=== PATIENT | female | born 1955 | race Caucasian/White ===

== ENCOUNTER 2021-02-12 19:30 | Emergency (ER) | payer OTHER ==
[~2021-02-12] VITALS: Ht 170.2 cm; Wt 75.0 kg
--- NOTE | 2021-02-12 19:36 | PHYS DOC ---
General Adult HPI: HPI: ".. I am sick.. got a sore throat.. nauseated.. some diarrhea.. just feel bad all over... my voice is gone..." Patient is a 65 year old female who presents with above hx and complaints n ausea, diarrhea, sore throat and malaise. No history of bad food intake. No history recent trauma. No specific ill contacts. Patient has had COVID vaccinations. X2 Moderna. No recent travel outside cancer area. Normally healthy. The pt. follows with Dr. Starr as primary. Review of Systems: Review of Systems: Constitutional: Subjective fever or chills Eyes: Denies change in visual acuity HENT: Planes of nasal congestion, laryngitis and sore throat Respiratory: History nonproductive cough Cardiovascular: Denies chest pain or edema GI: Mild abdomen abdominal pain, nausea, vomiting, and diarrhea : Denies dysuria Musculoskeletal: Denies back pain or joint pain Integument: Denies rash Neurologic: Denies headache, focal weakness or sensory changes Endocrine: Denies polyuria or polydipsia Lymphatic: Denies swollen glands Psychiatric: Denies depression or anxiety Family History: Family History: Noncontributory to presentation Current Medications: Current Meds: See nursing for home meds Allergies: Allergies: No known drug allergies Physical Exam: PE: Constitutional: Well developed, well nourished, no acute distress, non-toxic appearance. [] HENT: Normocephalic, atraumatic, bilateral external ears normal, TMs show small amount of fluid but no erythema oropharynx moist, no oral exudates, nose swollen turbinates clear rhinorrhea. Postnasal drainage. Mild pharyngeal erythema Eyes: PERRLA, EOMI, conjunctiva normal, no discharge. [] Neck: Normal range of motion, no tenderness, supple, no stridor. [] Cardiovascular:Heart rate regular rhythm, no murmur [] Lungs & Thorax: Bilateral breath sounds equal apex with few scattered wheezes auscultation [] Abdomen: Bowel sounds hyperactive, soft, or abdomen tenderness, no masses, no pulsatile masses. [] No focal areas of rebound. No psoas sign. Skin: Warm, dry, no erythema, no rash. [] Back: No tenderness, no CVA tenderness. [] Extremities: No tenderness, no cyanosis, no clubbing, ROM intact, no edema. No cording appreciated Neurologic: Alert and oriented X 3, normal motor function, normal sensory function, no focal deficits noted. [] Psychologic: Affect anxious , judgement normal, mood normal. [] EKG: EKG: [] Radiology/Procedures: Radiology/Procedures: [][address] [address] IMAGING REPORT Signed PATIENT: URSZULA COWAN ACCOUNT: [id number] : 1955 LOCATION: ER AGE: 65 SEX: F EXAM STATUS: REG ER ORD. PHYSICIAN: MILAGROS PRINCE MD REASON: abd. pain, diarrhea, v PROCEDURE: ACUTE ABDOMEN SERIES EXAMINATION: Chest and abdominal radiograph. VIEWS: Single AP view of the chest COMPARISON: None INDICATION:65 years, Female, abdominal pain. FINDINGS: CHEST: Normal cardiomediastinal silhouette. No focal consolidation. No pleural effusion or pneumothorax. No acute osseous process. Surgical clips within the area of the right thoracic inlet. Abdomen: Nonspecific nonobstructive bowel gas pattern. 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 Small amount of air within the rectum. No gross pneumoperitoneum.No abnormal intra-abdominal calcifications. No acute osseous process. Cholecystectomy clips noted. IMPRESSION: 1. No acute cardiopulmonary process. 2. Nonobstructive bowel gas pattern. Electronically signed by: Javier Spann DO (02/12/2021 9:33 PM) [facility] DICTATED AND SIGNED BY: JAVIER SPANN DO DATE: 02/12/212127 CC: MILAGROS PRINCE MD; OG STARR ~MTH0 [address] [place] [id number] IMAGING REPORT Signed PATIENT: URSZULA COWAN ACCOUNT: [id number] : 1955 LOCATION: ER AGE: 65 SEX: F EXAM STATUS: REG ER ORD. PHYSICIAN: MILAGROS PRINCE MD REASON: abd. pain, diarrhea, v PROCEDURE: ACUTE ABDOMEN SERIES EXAMINATION: Chest and abdominal radiograph. VIEWS: Single AP view of the chest COMPARISON: None INDICATION:65 years, Female, abdominal pain. FINDINGS: CHEST: Normal cardiomediastinal silhouette. No focal consolidation. No pleural effusion or pneumothorax. No acute osseous process. Surgical clips within the area of the right thoracic inlet. Abdomen: Nonspecific nonobstructive bowel gas pattern. 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 Small amount of air within the rectum. No gross pneumoperitoneum.No abnormal intra-abdominal calcifications. No acute osseous process. Cholecystectomy clips noted. IMPRESSION: 1. No acute cardiopulmonary process. 2. Nonobstructive bowel gas pattern. Electronically signed by: Javier Spann DO (02/12/2021 9:33 PM) [facility] DICTATED AND SIGNED BY: JAVIER SPANN DO DATE: 02/12/212127 CC: MILAGROS PRINCE MD; OG STARR ~MTH0 0 Heart Score: C/O Chest Pain: N/A Risk Factors: Risk Factors: DM, Current or recent (<one month) smoker, HTN, HLP, family history of CAD, obesity. Risk Scores: Score 0 - 3: 2.5% MACE over next 6 weeks - Discharge Home Score 4 - 6: 20.3% MACE over next 6 weeks - Admit for Clinical Observation Score 7 - 10: 72.7% MACE over next 6 weeks - Early Invasive Strategies Course & Med Decision Making: Course & Med Decision Making Pertinent Labs and Imaging studies reviewed. (See chart for details) Patient push fluids. No solids or milk products for x48 hours. Take Tylenol and ibuprofen for discomfort. May take Zofran 8 mg at 4 times a day for nausea and vomiting. Follow-up primary care. Gargle Listerine 4 times a day. Return if any concerns. Health isolate until Covid results are noted. Follow-up primary care. Have her review ED work-up. Impression: 1.. Viral syndrome 2. Mild Hypokalemia 3.4 [] Giuseppe Disclaimer: Giuseppe Disclaimer: This electronic medical record was generated, in whole or in part, using a voice recognition dictation system. Departure Departure: Referrals: OG STARR (PCP) Giuseppe Disclaimer This chart was dictated in whole or in part using Voice Recognition software in a busy, high-work load, and often noisy Emergency Department environment. It may contain unintended and wholly unrecognized errors or omissions. Dragon Disclaimer This chart was dictated in whole or in part using Voice Recognition software in a busy, high-work load, and often noisy Emergency Department environment. It may contain unintended and wholly unrecognized errors or omissions. MILAGROS PRINCE MD Feb 12, 2021 19:36
[2021-02-12] MEDS ORDERED: FAMOTIDINE 20 MG/2 ML VIAL IVP ONE (20:15)
[2021-02-12] MEDS ORDERED: KETOROLAC 30 MG/ML VIAL. IVP ONE (20:15)
[2021-02-12] MEDS ORDERED: ONDANSETRON PF 4 MG/2 ML VIAL. IVP ONE (20:15)
[2021-02-12] MEDS ORDERED: IV RINGERS SOLUTION,LACTATED 1,000 ML IV SCH (20:15)
[2021-02-12 21:13] LABS: BASO # 0.1 x10^3/uL (0.0-0.2); BASO % 1 % (0-3); EOS % 1 % (0-3); HEMATOCRIT 39.4 % (36.0-47.0); HEMOGLOBIN 13.3 g/dL (12.0-15.5); LYMPH # 1.4 x10^3/uL (1.0-4.8); LYMPH % 18 % (24-48); MEAN CORPUSCULAR HEMOGLOBIN 30 pg (25-35); MEAN CORPUSCULAR HGB CONC 34 g/dL (31-37); MEAN CORPUSCULAR VOLUME 89 fL (79-100); MONO # 0.5 x10^3/uL (0.0-1.1); MONO % 6 % (0-9); NEUT # 5.8 x10^3uL (1.8-7.7); NEUT % 75 % (31-73); PLATELET COUNT 246 x10^3/uL (140-400); RED BLOOD COUNT 4.43 x10^6/uL (3.50-5.40); RED CELL DISTRIBUTION WIDTH 13.4 % (11.5-14.5); WHITE BLOOD COUNT 7.8 x10^3/uL (4.0-11.0)
[2021-02-12 21:20] LABS: CALCIUM 9.4 mg/dL (8.5-10.1); CREATININE 0.6 mg/dL (0.6-1.0); POTASSIUM 3.4 mmol/L (3.5-5.1)
[2021-02-12 21:24] LABS: INFLUENZA A PATIENT NEGATIVE (NEGATIVE); INFLUENZA B PATIENT NEGATIVE (NEGATIVE)
--- NOTE | 2021-02-12 21:35 | RAD ---
EXAMINATION: Chest and abdominal radiograph. VIEWS: Single AP view of the chest COMPARISON: None INDICATION:65 years, Female, abdominal pain. FINDINGS: CHEST: Normal cardiomediastinal silhouette. No focal consolidation. No pleural effusion or pneumothorax. No acute osseous process. Surgical clips within the area of the right thoracic inlet. Abdomen: Nonspecific nonobstructive bowel gas pattern. 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 Small amount of air within the rectum. No gross pne umoperitoneum.No abnormal intra-abdominal calcifications. No acute osseous process. Cholecystectomy c lips noted. IMPRESSION: 1. No acute cardiopulmonary process. 2. Nonobstructive bowel gas pattern. Electronically signed by: Gunnar Spann DO (02/12/2021 9:33 PM) [facility]
[2021-02-12 21:41] LABS: BACTERIA,URINE FEW /HPF (0-FEW); BILIRUBIN,URINE NEG (NEG); CLARITY,URINE CLEAR; COLOR,URINE YELLOW; GLUCOSE,URINE NEG (NEG); NITRITE,URINE NEG (NEG); RBC,URINE 0 /HPF (0-2); UROBILINOGEN,URINE 0.2 mg/dL (0.2 mg/dL)
[2021-02-13] MEDS ORDERED: POTASSIUM CHLORIDE 20 MEQ TABLET.ER. PO ONE (00:15)
== END 2021-02-13 00:47 | disposition home or self-care (01) ==
LOC: ER 19:30
DX: B34.9 Viral infection, unspecified (principal); E87.6 Hypokalemia; Z20.822 Contact with and (suspected) exposure to COVID-19
CPT/HCPCS: 36415; 74022; 80048; 81001; 82550; 83690; 84484; 85025; 87070; 87804; 87880; 96361; 96374; 96375; 99283; C9803; J1885; J2405; J3490; J7120; U0003